=== PATIENT | female | born 1980 | race Caucasian/White ===

== ENCOUNTER → 2016-10-25 | Outpatient (CLI) | payer BC ==
[2016-02-01 15:57] VITALS: BP 122/66
[~2016-10-25] MED LIST: CIPR500T94 PO; OMEP20CA9 PO; PHEN-373 PO; TAMS0.4C97 PO
--- NOTE | 2016-10-25 10:58 | RAD ---
KUB, 10/25/2016: History: Kidney stones, left flank pain The abdominal gas pattern is unremarkable. The renal regions are partially obscured by overlying bowel content. There are radiopacities projecting over the hilar region of the right kidney suggesting a cluster of small intrarenal calculi. There are couple of faint radiopacities overlying the left kidney which may be due to calculi or overlying bowel content. No radiopaque calculus is seen along the expected course of either ureter. There is no evidence of organomegaly. IMPRESSION: Probable bilateral intrarenal calculi. CT scanning may be useful for further evaluation, if clinically indicated.
== END | disposition home or self-care (01) ==
LOC: RAD 10:07
PROVIDERS: ATTEND Nurse Practitioner Occupational Health
DX: N20.0 Calculus of kidney (principal)
CPT/HCPCS: 74000

== ENCOUNTER → 2018-07-14 | Outpatient (CLI) | payer BC ==
[2016-02-01 15:57] VITALS: BP 122/66
[~2018-07-14] MED LIST changes: -PHEN-373 PO; +PHEN-444 PO
--- NOTE | 2018-07-15 11:31 | RAD ---
AP view of the abdomen Clinical indications: Right-sided kidney stone. COMPARISON: October 25, 2016. FINDINGS: There is a radiopaque stone measuring 17 mm in size at the level of the right L2 transverse process which is located just medial to the right renal shadow and therefore may be located within the proximal right ureter just distal to the UPJ. There are multiple small radiopaque stones within the lower pole of the left kidney. There are small punctate calcifications within both sides of the anatomic pelvis which were not seen previously and therefore may represent calcified phleboliths. Certainly, a distal ureteral stone is possible. No obstructive bowel pattern is evident. IMPRESSION: 17 mm radiopaque stone of the proximal right ureter just distal to the UPJ. Punctate calcifications within both sides of the anatomic pelvis. Electronically signed by: Rainer Delarosa MD (07/15/2018 11:27 AM) [facility]
== END | disposition home or self-care (01) ==
LOC: RAD 10:28
PROVIDERS: ATTEND Urology
DX: N20.0 Calculus of kidney (principal)
CPT/HCPCS: 74018

== ENCOUNTER → 2018-08-19 | Outpatient (CLI) | payer BC ==
[2016-02-01 15:57] VITALS: BP 122/66
[~2018-08-19] MED LIST changes: +ACET500T68 PO; +BIOT1CAP3 PO; +ETON1VAG VG; +HYDR-2759 PO; +HYDR-2761 PO; +MULT-460 PO; +OMEP20CA10 PO; -OMEP20CA9 PO
--- NOTE | 2018-08-19 16:30 | RAD ---
Examination: Single frontal view of the abdomen HISTORY: History of right-sided renal stone COMPARISON: 07/14/2018. Findings/ impression: Radiopaque calculus measuring 1.7 cm is now located at the level just right of L3 transverse process medial to the right renal cortex is slightly inferior compared to prior exam. Right ureteral stent is identified. Punctate calculi identified in the left kidney similar to prior exam. Bowel gas pattern appears unremarkable. Electronically signed by: Jung Navarrete MD (08/19/2018 4:26 PM) [facility]
== END | disposition home or self-care (01) ==
LOC: RAD 12:51
PROVIDERS: ATTEND Urology
DX: N20.0 Calculus of kidney (principal)
CPT/HCPCS: 74018

== ENCOUNTER → 2018-09-22 | Outpatient (CLI) | payer BC ==
[2016-02-01 15:57] VITALS: BP 122/66
[~2018-09-22] MED LIST changes: -ACET500T68 PO; -BIOT1CAP3 PO; -ETON1VAG VG; -HYDR-2759 PO; -HYDR-2761 PO; -MULT-460 PO; -OMEP20CA10 PO; +OMEP20CA9 PO
--- NOTE | 2018-09-22 11:35 | RAD ---
KUB, 09/22/2018: HISTORY: Renal calculus Comparison is made to a study from 08/19/2018. The right ureteral stent remains in place in satisfactory position.There is a 15 mm radiopacity adjacent to the proximal aspect of the stent at the L2-3 level compatible with a calculus lodged in the proximal ureter near the ureteropelvic junction. It has shown no significant change since the prior exam. The renal regions are partially obscured by overlying bowel. The patient's known small bilateral intrarenal calculi are not clearly visualized radiographically. The abdominal gas pattern is unremarkable. IMPRESSION: No significant change since 08/19/2018. Electronically signed by: Julian Ibrahim MD (09/22/2018 11:32 AM) [facility]
== END | disposition home or self-care (01) ==
LOC: RAD 09:44
PROVIDERS: ATTEND Urology
DX: N20.0 Calculus of kidney (principal)
CPT/HCPCS: 74018

== ENCOUNTER 2018-10-13 13:30 | Day surgery (SDC) | payer BC ==
[~2018-10-13] VITALS: Ht 171.4 cm; Wt 86.2 kg
[~2018-10-13 13:30] MED LIST changes: +ACET500T68 PO; +BIOT1CAP3 PO; +CLINDAMYCIN 900MG PREMIX 50 ML IV ONE; +ETON1VAG VG; +HYDROmorphone 2 MG/ML VIAL IV PRN; +IOHEXOL 300 MG/ML 100ML VIAL. ONE; +IV RINGERS,LACTATED 1000ML 1,000 ML IV SCH; +LIDOCAINE 1% PF 2 ML VIAL. ID PRN; +LIDOCAINE 2% JELLY 6ML IN APPLICATOR. ONE; +MORPHINE SULFATE 2 MG/ML VIAL. IV PRN; +MULT-460 PO; +OMEP20CA10 PO; -OMEP20CA9 PO; +ONDANSETRON PF 4 MG/2 ML VIAL. IV PRN; +PROCHLORPERAZINE 10 MG/2 ML VIAL. IV PRN; +fentaNYL PF VIAL 100 MCG/2 ML VIAL IV PRN
[2018-10-13] MEDS ORDERED: LIDOCAINE 2% PF 5 ML VIAL. ONE (13:54)
[2018-10-13] MEDS ORDERED: DEXAMETHASONE SOD PHOS 20 MG/5 ML VIAL. ONE (13:54)
[2018-10-13] MEDS ORDERED: PROPOFOL 20 ML IV ONE ×3 (13:54→15:02)
[2018-10-13] MEDS ORDERED: SEVOFLURANE 31 TO 60 MINUTES. IH ONE (13:54)
[2018-10-13] MEDS ORDERED: KETOROLAC 30 MG/ML INJ FOR OR. INJ ONE (13:55)
[2018-10-13] MEDS ORDERED: SCOPOLAMINE 1.5MG PATCH. TD ONE (14:22)
[2018-10-13] MEDS ORDERED: ROCURONIUM 50 MG/5 ML VIAL. ONE (14:52)
[2018-10-13] MEDS ORDERED: ESMOLOL 100 MG/10 ML VIAL. IVP ONE (15:05)
--- NOTE | 2018-10-13 15:49 | DISCH ---
DISCHARGE INSTRUCTIONS Condition on Discharge Condition on Discharge: Stable Activity After Discharge Activity Instructions for Disc: Activity as tolerated Driving Instructions after Dis: Do not drive today Diet after Discharge Diet after Discharge: Regular Checks after Discharge Checks after discharge: Check your Temp as needed Contacting the DRPepe after DC Call your doctor for: Fever greater than 100 Follow-Up Follow up with: office in one week with RAKESH (please bring to appt) ALLEN HOLLIDAY MD Oct 13, 2018 15:49
--- NOTE | 2018-10-13 15:57 | PDOC4 ---
OPERATIVE NOTE Date: Date: Oct 13, 2018 Pre-Op Diagnosis: R Uret calc Post-Op Diagnosis: same Procedure Performed: cysto, removal stent, R ureteroscopy w laser tripsy of stone, re-insertion of stent Surgeon: angelika Anesthesia Type: gen Blood Loss: min Specimans Obtained: none Findings: lg R prox stone Complications: neg Operative Note: Gen anes pt placed in lithotomy, IV abx admin'd cysto and removal of R ureteral stent R ureteroscopy performed with 6.9 Fr uret'scope, a guidewire was placed prior A lg stone identified and the 350 Micron laser was used to fragment over half of it; the portion remaining migrated into kidney Flexible ureteroscopy then performed and the stone was identified and again tx' d with the laser fiber. The renal gretta system was examined and identifiable fragments were tx'd with the laser. Fluoro was used to examine the kidney area and no significant fragments were identified. The flex scope was removed and a 6 x 26 stent on a string was then placed over a wire. The stent coiled in good pos'n Pt awakened and transferred to RR in good cond'n Disp: home after RR, Rx Lortab, F/U 1 wk w KUB for probable stent removal. ALLEN HOLLIDAY MD Oct 13, 2018 15:57
[2018-10-13] MEDS ORDERED: HYDR-2759 PO (16:15)
[2018-10-13] MEDS ORDERED: HYDR-2761 PO (16:16)
[2018-10-13] MEDS ORDERED: HYDROcodone/APAP 5/325MG 1 TAB TABLET ONE (16:29)
[2018-10-13] MEDS ORDERED: HYDROcodone/APAP 5/325MG 1 TAB TABLET PO ONE (16:30)
[2018-10-13 17:00] VITALS: BP 130/76
== END 2018-10-13 17:18 | disposition home or self-care (01) ==
LOC: SURG 13:30
PROVIDERS: ATTEND Urology
DX: N20.1 Calculus of ureter (principal); Z88.6 Allergy status to analgesic agent; Z88.0 Allergy status to penicillin; Z88.8 Allergy status to other drugs, medicaments and biological substances; Z79.899 Other long term (current) drug therapy; Z98.51 Tubal ligation status; Z98.84 Bariatric surgery status; Z98.890 Other specified postprocedural states
CPT/HCPCS: 52356; 76000; A7015; C1769; C2617; J0696; J1100; J1885; J2001; J2704; J3490; Q9967

== ENCOUNTER → 2018-10-20 | Outpatient (CLI) | payer BC ==
[2018-10-13 17:00] VITALS: BP 130/76
[~2018-10-20] MED LIST changes: -CLINDAMYCIN 900MG PREMIX 50 ML IV ONE; +HYDR-2759 PO; +HYDR-2761 PO; -HYDROmorphone 2 MG/ML VIAL IV PRN; -IOHEXOL 300 MG/ML 100ML VIAL. ONE; -IV RINGERS,LACTATED 1000ML 1,000 ML IV SCH; -LIDOCAINE 1% PF 2 ML VIAL. ID PRN; -LIDOCAINE 2% JELLY 6ML IN APPLICATOR. ONE; -MORPHINE SULFATE 2 MG/ML VIAL. IV PRN; -ONDANSETRON PF 4 MG/2 ML VIAL. IV PRN; -PROCHLORPERAZINE 10 MG/2 ML VIAL. IV PRN; -fentaNYL PF VIAL 100 MCG/2 ML VIAL IV PRN
--- NOTE | 2018-10-20 11:41 | RAD ---
Single view of the abdomen 10/20/2018 INDICATION: Follow-up stone surgery COMPARISON STUDY: KUB September 22, 2018 Discussion: There is a right double-J ureteral stent, in expected position. The previously seen stone projecting over the right renal shadow is no longer visualized. Small calcifications, likely stone fragments are seen projecting over the inferior right kidney, along the course of the proximal left ureter, adjacent to the stent. Largest of these projects over the inferior right kidney measuring approximately 5 mm in diameter. Possible punctate calcifications are seen projecting over the left renal shadow. No acute osseous abnormality is seen. No evidence of bowel obstruction is seen. IMPRESSION: 1. Right double-J ureteral stent in expected position 2. Stone fragments seen projecting over the inferior right kidney, and along the expected course of the proximal left ureter, adjacent to the stent Electronically signed by: David Smith MD (10/20/2018 11:38 AM) [id number]
== END | disposition home or self-care (01) ==
LOC: RAD 10:40
PROVIDERS: ATTEND Urology
DX: Z09 Encounter for follow-up examination after completed treatment for conditions other than malignant neoplasm (principal); Z96.0 Presence of urogenital implants; Z87.442 Personal history of urinary calculi
CPT/HCPCS: 74018